=== PATIENT | female | born 1970 | race Caucasian/White ===

== ENCOUNTER 2017-02-25 22:45 | Emergency (ER) | payer OTHER, MEDICARE, BC ==
[2017-02-25] MEDS ORDERED: Sodium Chloride 0.9% 5 ML Syringe FLUSH PRN (22:58)
[2017-02-25] MEDS ORDERED: Dextrose 5%-0.45% NaCl 1,000 ML IV SCH (23:00)
[2017-02-25] MEDS ORDERED: Dextrose 5%-0.45% NaCl 1,000 ML ONE (23:00)
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
[2017-02-25 23:15] LABS: CHLORIDE,CL 105 mmol/L (98-115); SODIUM,NA 143 mmol/L (136-145)
[2017-02-25] MEDS ORDERED: Ondansetron 4 MG/2 ML SDV ONE ×2 (23:29→23:48)
[2017-02-25] MEDS ORDERED: 50% Dextrose in Water 50 ML Syringe IVPUSH ONE (23:30)
[2017-02-25] MEDS ORDERED: Ondansetron 4 MG/2 ML SDV IVPUSH ONE (23:52)
[2017-02-26] MEDS ORDERED: Lidocaine 2% with EPINEPHrine 1:200,000 20 ML SDV ONE (00:08)
[2017-02-26] MEDS ORDERED: Ondansetron 4 MG/2 ML SDV IVPUSH ONE (00:09)
[2017-02-26] MEDS: Iopamidol 612 MG/ML 75 ML Bottle IV ONE ×2 (00:24→14:46)
[2017-02-26] MEDS ORDERED: Sodium Chloride 0.9% 50 ML SDV FLUSH SCH (00:30)
[2017-02-26] MEDS ORDERED: Sodium Chloride 0.9% 500 ML IV SCH (00:45)
[2017-02-26] MEDS ORDERED: HYDROmorphone 1 MG/ML Syringe ONE (01:04)
[2017-02-26] MEDS ORDERED: ceFAZolin 1 GM Vial IVPUSH ONE (01:37)
[2017-02-26] MEDS ORDERED: Sodium Chloride 0.9% 50 ML ONE (02:04)
[2017-02-26] MEDS ORDERED: Sodium Chloride 0.9% 1,000 ML ONE (02:47)
[2017-02-26 04:00] VITALS: BP 114/64
[2017-02-26] MEDS ORDERED: 50% Dextrose in Water 50 ML Syringe IVPUSH ONE (23:30)
== END 2017-02-26 02:15 ==
LOC: KA.ED 22:45
DX: S06.0X0A Concussion without loss of consciousness, initial encounter (principal); S02.2XXB Fracture of nasal bones, initial encounter for open fracture; S11.91XA Laceration without foreign body of unspecified part of neck, initial encounter; E11.9 Type 2 diabetes mellitus without complications; Z79.4 Long term (current) use of insulin; S80.811A Abrasion, right lower leg, initial encounter; V49.9XXA Car occupant (driver) (passenger) injured in unspecified traffic accident, initial encounter; Y92.410 Unspecified street and highway as the place of occurrence of the external cause
CPT/HCPCS: 12004; 12011; 70450; 70486; 72125; 73562; 73590; 74177; 80053; 84703; 85025; 85610; 85730; 96361; 96374; 96375; 96376; 99285; G0480; J0690; J1170; J2405; J7030; J7042; J7050; Q9967; J7060